=== PATIENT | male | born 1950 | race Caucasian/White ===

== ENCOUNTER 2017-01-10 06:54 | Day surgery (SDC) | payer BC ==
[2017-01-10] MEDS ORDERED: Lactated Ringers 1,000 ML IV SCH (07:30)
[2017-01-10] MEDS ORDERED: Propofol 200 MG/20 ML SDV ONE (07:49)
[2017-01-10] MEDS ORDERED: Midazolam 1 MG/ML 2 ML SDV ONE (07:49)
[2017-01-10] MEDS ORDERED: fentaNYL 100 MCG/2 ML SDV ONE (07:49)
[2017-01-10 09:57] VITALS: BP 155/91
--- NOTE | 2017-01-10 13:18 | OR ---
DATE OF PROCEDURE: 01/10/2017 PREOPERATIVE DIAGNOSIS: Colon cancer screening. POSTOPERATIVE DIAGNOSIS: Unremarkable colonoscopy. PROCEDURE: Colonoscopy to the cecum. ANESTHESIA: IV anesthesia with monitored anesthesia care. INDICATION: This 66-year-old white male is referred for a colonoscopy for colon cancer screening. His last colonoscopic exam, he says, was done about 15 years ago. I counseled him for the procedure including risks alternatives, and he gave his informed consent to proceed. DESCRIPTION OF PROCEDURE: The patient was placed in the left lateral decubitus position. IV anesthesia was administered by the Anesthesia Service. Time-out was held. A rectal exam was performed, which was unremarkable. The flexible video Olympus colonoscope was introduced through his anus, up his rectum, and out his colon all the way to the cecum. Once the cecum was reached, the scope was slowly withdrawn examining the mucosa throughout. No mucosal abnormalities were noted. The scope was retroflexed in the rectum with the distal rectum appearing unremarkable. The scope was straightened and removed. He tolerated the procedure well. Willard Pearson MD /[id number]
== END 2017-01-10 10:07 | disposition home or self-care (01) ==
LOC: JP.SDS 06:54
PROVIDERS: ATTEND Surgery
PROC: 0DJD8ZZ Inspection of Lower Intestinal Tract, Via Natural or Artificial Opening Endoscopic (ICD-10-PCS; principal; 2017-01-10)
DX: Z12.11 Encounter for screening for malignant neoplasm of colon (principal); Z88.8 Allergy status to other drugs, medicaments and biological substances
CPT/HCPCS: 45378; J2250; J2704; J3010; J7120